=== PATIENT | female | born 1955 | race Caucasian/White ===

== ENCOUNTER 2020-12-19 20:39 | Emergency (ER) | payer MEDICARE, OTHER ==
[2020-12-20] MEDS ORDERED: HYDROCODON-ACE1 EAC4 PO (01:07)
== END 2020-12-20 01:35 | disposition home or self-care (01) ==
LOC: ER1 20:39
DX: S32.512A Fracture of superior rim of left pubis, initial encounter for closed fracture (principal); S42.212A Unspecified displaced fracture of surgical neck of left humerus, initial encounter for closed fracture; S20.212A Contusion of left front wall of thorax, initial encounter; I10 Essential (primary) hypertension; K21.9 Gastro-esophageal reflux disease without esophagitis; E03.9 Hypothyroidism, unspecified; W22.8XXA Striking against or struck by other objects, initial encounter; Y92.009 Unspecified place in unspecified non-institutional (private) residence as the place of occurrence of the external cause
CPT/HCPCS: 71045; 72192; 73030; 73502; 99284